=== PATIENT | male | born 1990 | race Two or more races ===

== ENCOUNTER 2020-11-18 14:27 | Emergency (ER) | payer OTHER ==
[~2020-11-18] VITALS: Ht 175.3 cm; Wt 70.3 kg
[2020-11-18 14:34] VITALS: BP 135/66
== END 2020-11-18 16:37 | disposition home or self-care (01) ==
LOC: ER 14:27
DX: S33.5XXA Sprain of ligaments of lumbar spine, initial encounter (principal); S40.022A Contusion of left upper arm, initial encounter; S40.021A Contusion of right upper arm, initial encounter; R51.9 Headache, unspecified; Y04.8XXA Assault by other bodily force, initial encounter; Y93.89 Activity, other specified; Y92.89 Other specified places as the place of occurrence of the external cause; Y99.8 Other external cause status
CPT/HCPCS: 70450; 72080; 72100